=== PATIENT | female | born 1990 | race American Indian/Alaskan Native ===

== ENCOUNTER 2016-08-21 06:22 | Emergency (ER) | payer MEDICAID, OTHER ==
[2016-08-21 06:34] VITALS: BP 110/77; PULSE 102; RESP 16; TEMP 98.3; O2SAT 98
--- NOTE | 2016-08-21 07:26 | C.PDOC ---
History Of Present Illness 26-year-old female, presents to the emergency department with complaints of cough, and nasal congestion x3 days. She reports taking Day-Quil with limited relief. Patient denies any fevers, shortness of breath, headache, nausea/ vomiting, diarrhea, or any other associated symptoms. No other complaints at this time. Time Seen by Provider: 08/21/16 07:14 Chief Complaint (Nursing): Cough, Cold, Congestion History Per: Patient History/Exam Limitations: no limitations Onset/Duration Of Symptoms: Days Current Symptoms Are (Timing): Still Present Past Medical History Reviewed: Historical Data, Nursing Documentation, Vital Signs Vital Signs: Last Vital Signs Temp 98.3 F 08/21/16 06:31 Pulse 102 H 08/21/16 06:31 Resp 16 08/21/16 06:31 BP 110/77 08/21/16 06:31 Pulse Ox 98 08/21/16 07:58 - Medical History PMH: Asthma Surgical History: Appendectomy - [facility] Procedures INJECT/INFUSE NEC (08/02/13) NEBULIZER THERAPY (07/30/13) Family History: States: No Known Family Hx - Social History Hx Tobacco Use: Yes Hx Alcohol Use: No Hx Substance Use: No - Immunization History Hx Tetanus Toxoid Vaccination: No Hx Influenza Vaccination: No Hx Pneumococcal Vaccination: No Review Of Systems Except As Marked, All Systems Reviewed And Found Negative. Constitutional: Negative for: Fever ENT: Positive for: Nose Congestion Respiratory: Negative for: Cough, Shortness of Breath, Sputum, Wheezing Gastrointestinal: Negative for: Nausea, Vomiting, Diarrhea Musculoskeletal: Negative for: Neck Pain Neurological: Negative for: Weakness, Headache, Dizziness Physical Exam - Physical Exam Appears: Non-toxic, No Acute Distress Skin: Warm, Dry, No Rash Eye(s): bilateral: Normal Inspection, PERRL Ear(s): Bilateral: Normal Nose: Other (Mild congestion) Oral Mucosa: Moist Lips: Normal Appearing Neck: Normal ROM, Supple Cardiovascular: Rhythm Regular, No Murmur Respiratory: Normal Breath Sounds, No Accessory Muscle Use, No Rales, No Rhonchi , No Wheezing Extremity: Normal ROM Neurological/Psych: Oriented x3 ED Course And Treatment O2 Sat by Pulse Oximetry: 98 (on Room Air) Medical Decision Making Medical Decision Making: Impression 26y/o F, comes in with nasal congestion and cough, likely viral URI Dispo: Patient has no fever appears nontoxic and in no respiratory distress. Lungs clear bilaterally with good air entry. Patient will be discharged home with Rx for Sudafed and Phenergan; Patient instructed to f/u outpatient with PMD. Agrees with plan. All questions answered. Disposition Counseled Patient/Family Regarding: Diagnosis, Need For Followup, Rx Given - Disposition Disposition: HOME/ ROUTINE Disposition Time: 07:23 Condition: GOOD Additional Instructions: You have viral upper respiratory infection. Take Tylenol or Motrin alternating every 4-6 hours for Fever 100.4F or higher. Rest and drink plenty of fluids. May use cool mist humidifier or vaporizer in room. Try taking over the counter antihistamine (Claritin, Johana, Zyrtec), Decongestant or Cough medicine ( Mucinex) as needed every 6-8 hours. Follow up with your primary medical doctor or clinic in 1 week for further evaluation. Prescriptions: Promethazine DM [Phenergan DM Syrup] 5 ml PO Q8 PRN #3 oz PRN Reason: Cough Pseudoephedrine HCl [Sudafed] 30 mg PO Q8 #24 tablet Instructions: Upper Respiratory Infection (ED) Forms: Work Excuse - POA Present On Arrival: None - Clinical Impression Clinical Impression: Upper respiratory infection - Scribe Statement The provider has reviewed the documentation as recorded by the Scribe (Shemar Srivastava) All medical record entries made by the Scribe were at my direction and personally dictated by me. I have reviewed the chart and agree that the record accurately reflects my personal performance of the history, physical exam, medical decision making, and the department course for this patient. I have also personally directed, reviewed, and agree with the discharge instructions and disposition.
== END 2016-08-21 07:30 | disposition home or self-care (01) ==
LOC: C.ER 06:22
DX: J06.9 Acute upper respiratory infection, unspecified (principal)

== ENCOUNTER 2017-05-30 19:59 | Emergency (ER) | payer MEDICAID, OTHER ==
[2017-05-30 20:17] VITALS: RESP 20
[2017-05-30] MEDS ORDERED: Sodium Chloride 0.9% 1,000 ML IV ONE (21:04)
[2017-05-30 21:32] LABS: BASO # 0.1 K/uL (0.0-0.2); BASO % 2.1 % (0.0-2.0); EOS # 0.4 K/uL (0.0-0.7); EOS % 6.3 % (0.0-4.0); HEMOGLOBIN 12.9 g/dL (11.0-16.0); LYMPH # 1.7 K/uL (1.0-4.3); LYMPH % 26.9 % (20.0-40.0); MEAN CELL VOLUME 88.5 fL (81.0-99.0); MEAN CORPUSCULAR HEMOGLOBIN 28.8 pg (27.0-31.0); MEAN CORPUSCULAR HGB CONC 32.6 g/dL (33.0-37.0); MONO # 0.7 K/uL (0.0-0.8); MONO % 11.3 % (0.0-10.0); NEUT # 3.4 K/uL (1.8-7.0); NEUT % 53.4 % (50.0-75.0); RBC 4.47 Mil/uL (3.80-5.20); RED CELL DISTRIBUTION WIDTH 14.3 % (11.5-14.5); WHITE BLOOD COUNT 6.4 K/uL (4.8-10.8)
[2017-05-30 21:45] LABS: ALB/GLOB RATIO 1.1 (1.0-2.1); ALBUMIN 4.1 g/dL (3.5-5.0); ALT/SGPT 14 U/L (9-52); AST/SGOT 19 U/L (14-36); BLOOD UREA NITROGEN 11 mg/dL (7-17); CALCIUM 8.6 mg/dl (8.6-10.4); GFR AFRICAN-AMERICAN > 60; GFR NON-AFRICAN AMERICAN > 60; LIPASE 50 U/L (23-300)
--- NOTE | 2017-05-30 22:06 | C.PDOC ---
Time Seen by Provider: 05/30/17 20:30 Chief Complaint (Nursing): Flu-like Symptoms History Per: Patient Onset/Duration Of Symptoms: Days (4) Current Symptoms Are (Timing): Still Present Associated Symptoms: Sore Throat, Cough, Nasal Congestion, Nausea, Vomiting, Diarrhea Severity: Moderate Additional History Per: Prior Records Past Medical History Reviewed: Historical Data, Nursing Documentation, Vital Signs Vital Signs: Last Vital Signs Temp 97.8 F 05/30/17 20:13 Pulse 87 05/30/17 20:13 Resp 20 05/30/17 20:13 BP 133/90 05/30/17 20:13 Pulse Ox 97 05/30/17 20:13 - Medical History PMH: Asthma Surgical History: Appendectomy - [facility] Procedures INJECT/INFUSE NEC (08/02/13) NEBULIZER THERAPY (07/30/13) Family History: States: Unknown Family Hx - Social History Hx Tobacco Use: Yes Hx Alcohol Use: No Hx Substance Use: No - Immunization History Hx Tetanus Toxoid Vaccination: No Hx Influenza Vaccination: No Hx Pneumococcal Vaccination: No Review Of Systems Except As Marked, All Systems Reviewed And Found Negative. Constitutional: Positive for: Fever ENT: Positive for: Nose Congestion, Throat Pain. Negative for: Ear Pain Cardiovascular: Negative for: Chest Pain Respiratory: Positive for: Cough. Negative for: Shortness of Breath, Hemoptysis Gastrointestinal: Positive for: Nausea, Vomiting, Abdominal Pain, Diarrhea. Negative for: Melena, Hematochezia, Hematemesis Genitourinary: Negative for: Dysuria Musculoskeletal: Negative for: Neck Pain, Back Pain Skin: Negative for: Rash Neurological: Negative for: Weakness, Numbness, Seizures, Altered Mental Status Physical Exam - Physical Exam Appears: Non-toxic, No Acute Distress Skin: Normal Color, Warm, Dry, No Rash Head: Atraumatic, Normacephalic Eye(s): bilateral: Normal Inspection, PERRL, EOMI Oral Mucosa: Moist, No Drooling, No Trismus Neck: Normal ROM, Supple Lymphatic: No Adenopathy Cardiovascular: Rhythm Regular Respiratory: Normal Breath Sounds, No Accessory Muscle Use Gastrointestinal/Abdominal: Soft, Tenderness (mild nonspecific), No Distention, No Guarding, No Rebound Back: No CVA Tenderness Extremity: Normal ROM Neurological/Psych: Oriented x3, Normal Speech, Normal Motor, Normal Sensation ED Course And Treatment - Laboratory Results Result Diagrams: 05/30/17 21:29 05/30/17 21:29 Lab Interpretation: No Acute Changes O2 Sat by Pulse Oximetry: 97 Pulse Ox Interpretation: Normal Progress - Interventions Interventions:: Observation, Intravenous fluid - Medications Administered Oral: Antiemetic Intravenous: H-2 johnna, NSAID - Data Reviewed Data Reviewed: Lab, Old records - Patient Status Patient status: Mostly improved - Continuity of Care Discussed patient case with:: Patient, ED Nurse - Patient Plan Patient Plan: Discharge, F/U with PCP Disposition Counseled Patient/Family Regarding: Studies Performed, Diagnosis, Need For Followup, Rx Given, Smoking Cessation - Disposition Disposition: HOME/ ROUTINE Disposition Time: 22:08 Condition: IMPROVED Additional Instructions: Drink plenty of fluids. Follow up with your doctor. Return to the ER if you develop shortness of breath, not tolerating fluids, worsening of symptoms or if you have any other concerns. Prescriptions: Naproxen [Naprosyn] 1 tab PO BID PRN #20 tab PRN Reason: Pain Promethazine DM [Phenergan DM Syrup] 5 ml PO Q4 PRN #1 bottle PRN Reason: Cough Instructions: Viral Syndrome (DC) Forms: [facility] (Kazakh) - Clinical Impression Clinical Impression: Influenza-like illness
[2017-05-30 22:26] LABS: HCG,QUALITATIVE URINE NEGATIVE (NEGATIVE)
[2017-05-30 22:28] LABS: SQUAMOUS EPITHIAL 5 /hpf (0-5); URINE BACTERIA RARE (<OCC); URINE BILIRUBIN NEGATIVE (NEGATIVE); URINE BLOOD 3+ (NEGATIVE); URINE COLOR Yellow (YELLOW); URINE GLUCOSE (UA) NORMAL (Normal); URINE LEUKOCYTE ESTERASE TRACE Leu/uL (Negative); URINE PROTEIN NEGATIVE (NEGATIVE); URINE UROBILINOGEN NORMAL mg/dL (0.2-1.0)
[2017-05-30 22:31] LABS: URINE CLARITY Hazy (Clear)
[2017-05-30 22:38] VITALS: BP 119/81; PULSE 85; TEMP 98.3; O2SAT 99
== END 2017-05-30 22:53 | disposition home or self-care (01) ==
LOC: C.ER 19:59
DX: J11.1 Influenza due to unidentified influenza virus with other respiratory manifestations (principal); Z72.0 Tobacco use
CPT/HCPCS: 80053; 81001; 83690; 84703; 85025; 87804; 96361; 96374; 96375; 99285; J1885; J7040

== ENCOUNTER 2017-10-13 17:51 | Emergency (ER) | payer OTHER ==
[2017-10-13 17:55] VITALS: BMI 28.5
[2017-10-13 18:35] LABS: URINE BILIRUBIN NEGATIVE (NEGATIVE); URINE CLARITY HAZY (Clear); URINE COLOR YELLOW (YELLOW); URINE GLUCOSE (UA) NORMAL (Normal)
[2017-10-13 18:36] LABS: URINE BLOOD 3+ (NEGATIVE); URINE LEUKOCYTE ESTERASE TRACE Leu/uL (Negative); URINE PROTEIN NEGATIVE (NEGATIVE)
[2017-10-13 18:37] LABS: HCG,QUALITATIVE URINE NEGATIVE (NEGATIVE); SQUAMOUS EPITHIAL 10 /hpf (0-5)
--- NOTE | 2017-10-13 18:45 | C.PDOC ---
History Of Present Illness 27 y/o F c no PMHx p/w L sided pelvic pain x 1 week. Pain is sharp, intermittent , severe, associated with vaginal spotting. States had sexual intercourse a little before 1 week prior to symptoms with boyfriend who she has been sexually active with for 1 month, and notes that condom broke. He went to her primary care physician for this pain and states she had a negative gonorrhea and chlamydia test. Denies fever, chills, chest pain, dyspnea, vomiting, diarrhea, dysuria. Time Seen by Provider: 10/13/17 18:31 Chief Complaint (Nursing): Female Genitourinary Past Medical History Vital Signs: Last Vital Signs Temp 98.3 F 10/13/17 17:55 Pulse 103 H 10/13/17 17:55 Resp 20 10/13/17 17:55 BP 140/93 H 10/13/17 17:55 Pulse Ox 98 10/13/17 18:50 - Medical History PMH: Asthma Surgical History: Appendectomy - [facility] Procedures INJECT/INFUSE NEC (08/02/13) NEBULIZER THERAPY (07/30/13) Family History: States: Unknown Family Hx - Social History Hx Tobacco Use: Yes Hx Alcohol Use: No Hx Substance Use: No - Immunization History Hx Tetanus Toxoid Vaccination: No Hx Influenza Vaccination: No Hx Pneumococcal Vaccination: No Review Of Systems Except As Marked, All Systems Reviewed And Found Negative. Constitutional: Negative for: Fever Cardiovascular: Negative for: Chest Pain Physical Exam - Physical Exam Additional Physical Exam Comments: Constitutional: No acute distress. Head: Normocephalic. Atraumatic. Eyes: PERRL. ENT: Moist mucous membranes. Neck: Supple. Cardiovascular: Regular rate. Radial pulse 2+ bilaterally. Chest: No tenderness. Respiratory: Clear to auscultation bilaterally. Abdomen: Suprapubic pain just to L of midline Back: No CVA tenderness. Musculoskeletal: No tenderness or swelling of extremities. Skin: No rash. Neurologic: Alert, no focal deficit. ED Course And Treatment - Laboratory Results Result Diagrams: 10/13/17 16:55 10/13/17 16:55 O2 Sat by Pulse Oximetry: 98 (RA) Pulse Ox Interpretation: Normal Medical Decision Making Medical Decision Making: FINDINGS: Uterus/cervix: 1.9 x 1.5 x 1.1 cm posterior uterine mass. Endometrium: 0.9 cm in thickness. Right ovary: No mass. Small follicles. Normal flow. Left ovary: 1.6 x 1.4 x 1.8 cm dominant follicle. Questionable 1.2 x 1.0 x 1.2 cm corpus luteum. Small follicles. Normal flow. Free fluid: Small free fluid within pelvis. IMPRESSION: 1. No definite sonographic evidence of ovarian torsion. 2. Probable fibroid. Patient states symptoms much improved. Will discharge, f/u with private CLINICAL TECHNICIAN, return to ED for worsening pain, fever, vomiting, or any other problem. Disposition - Disposition Disposition: HOME/ ROUTINE Disposition Time: 21:03 Condition: STABLE Prescriptions: Famotidine [Pepcid] 1 tab PO BID #14 tab Ibuprofen [Motrin] 600 mg PO Q6 #25 tab Instructions: Ovarian Cysts Forms: [facility] (Macedonian) - Clinical Impression Clinical Impression: Ovarian cyst - Scribe Statement The provider has reviewed the documentation as recorded by the Amyibneo Hoover All medical record entries made by the Amyibneo were at my direction and personally dictated by me. I have reviewed the chart and agree that the record accurately reflects my personal performance of the history, physical exam, medical decision making, and the department course for this patient. I have also personally directed, reviewed, and agree with the discharge instructions and disposition.
[2017-10-13] MEDS ORDERED: Sodium Chloride 0.9% 1,000 ML IV STA (18:48)
[2017-10-13] MEDS ORDERED: Sodium Chloride 0.9% 1,000 ML ONE (19:02)
[2017-10-13 19:03] LABS: BASO # 0.1 K/uL (0.0-0.2); EOS # 0.2 K/uL (0.0-0.7); HEMOGLOBIN 12.4 g/dL (11.0-16.0); LYMPH # 1.8 K/uL (1.0-4.3); MEAN CELL VOLUME 87.8 fL (81.0-99.0); MEAN CORPUSCULAR HEMOGLOBIN 29.1 pg (27.0-31.0); MEAN CORPUSCULAR HGB CONC 33.1 g/dL (33.0-37.0); MEAN PLATELET VOLUME 9.8 fL (7.2-11.7); MONO % 8.7 % (0.0-10.0); NEUT % 72.3 % (50.0-75.0); NRBC % 0.1 % (0.0-2.0); RBC 4.26 Mil/uL (3.80-5.20); RED CELL DISTRIBUTION WIDTH 14.2 % (11.5-14.5); WHITE BLOOD COUNT 11.1 K/uL (4.8-10.8)
[2017-10-13 19:16] LABS: ALB/GLOB RATIO 1.5 (1.0-2.1); ALBUMIN 4.1 g/dL (3.5-5.0); ALT/SGPT 21 U/L (9-52); AST/SGOT 19 U/L (14-36); BLOOD UREA NITROGEN 19 mg/dL (7-17); CALCIUM 9.1 mg/dl (8.6-10.4); GFR AFRICAN-AMERICAN > 60; GFR NON-AFRICAN AMERICAN > 60
[2017-10-13 21:18] VITALS: BP 130/83; PULSE 73; RESP 16; TEMP 98.9; O2SAT 97
--- NOTE | 2017-10-14 10:18 | US ---
Pelvic ultrasound History: Pelvic pain. Cyst versus torsion. Comparison: None available. Technique: Real-time sonography was performed through the pelvis utilizing transvaginal technique. Findings: Uterus: 8.7 x 4.1 x 6.0 centimeters. Heterogeneous echotexture. Anteverted. Heterogeneous lesion at the level of the uterine fundus which appears pedunculated measuring 1.5 x 1.1 x 1.9 centimeters. Endometrium measures 9 millimeters, within normal limits. Free fluid within the pelvic cul-de-sac. Right ovary: 2.7 x 2.3 x 1.9 centimeters. Normal flow. Left ovary: 3.2 x 3.2 x 3.3 centimeters. Normal flow. 1.6 x 1.4 x 1.8 centimeter dominant follicle/cyst. Adjacent echogenic foci which may represent a corpus luteum versus complex cyst measuring 1.2 x 1.0 x 1.2 cm. 4-6 week interval followup may be helpful if clinically indicated. Impression: 1. Echogenic foci at the level of the left ovary measuring up to 1.2 centimeters which may represent a corpus luteum versus complex cyst versus additional etiology. 4-6 week interval followup may be helpful if clinically indicated. 2. 1.8 centimeter left ovarian cyst/dominant follicle. 3. Free fluid in the pelvic cul-de-sac. 4. Fibroid uterus. These findings were preliminarily reported at 8:43 p.m. on 10/13/[address] Wiliam Healy from [facility].
== END 2017-10-13 21:26 | disposition home or self-care (01) ==
LOC: C.ER 17:51
DX: N83.202 Unspecified ovarian cyst, left side (principal); Z72.0 Tobacco use
CPT/HCPCS: 76830; 80053; 81001; 84702; 84703; 85025; 96374; 99285; J1885; J7030

== ENCOUNTER 2017-10-16 17:28 | Emergency (ER) | payer OTHER ==
[2017-10-16 17:28] VITALS: BMI 28.5
[2017-10-16 17:37] VITALS: RESP 18
[2017-10-16 19:17] LABS: BASO # 0.1 K/uL (0.0-0.2); BASO % 0.7 % (0.0-2.0); EOS # 0.2 K/uL (0.0-0.7); EOS % 1.5 % (0.0-4.0); HEMOGLOBIN 13.7 g/dL (11.0-16.0); LYMPH % 16.9 % (20.0-40.0); MEAN CORPUSCULAR HEMOGLOBIN 29.8 pg (27.0-31.0); MEAN CORPUSCULAR HGB CONC 33.9 g/dL (33.0-37.0); MEAN PLATELET VOLUME 10.1 fL (7.2-11.7); MONO # 0.8 K/uL (0.0-0.8); MONO % 6.8 % (0.0-10.0); NEUT # 8.8 K/uL (1.8-7.0); NEUT % 74.1 % (50.0-75.0); NRBC % 0.1 % (0.0-2.0); RBC 4.59 Mil/uL (3.80-5.20); RED CELL DISTRIBUTION WIDTH 14.5 % (11.5-14.5); WHITE BLOOD COUNT 11.9 K/uL (4.8-10.8)
--- NOTE | 2017-10-16 19:51 | C.PDOC ---
History Of Present Illness 27yo female, presents to the emergency department with complaints of left lower quadrant abdominal pain x1 week. Pain is sharp, intermittent, severe, associated with vaginal spotting. States this is not her period, and she s going through four pads a day. Patient was seen in ED three days ago but continues to have pain. States she was discharged with Naprosyn which is not helping. Denies fever, chills, chest pain, dyspnea, vomiting, diarrhea, dysuria. Patient took a text two days ago, which was negative. LMP . Time Seen by Provider: 10/16/17 18:12 Chief Complaint (Nursing): Abdominal Pain History Per: Patient History/Exam Limitations: no limitations Onset/Duration Of Symptoms: Days Current Symptoms Are (Timing): Still Present Severity: Moderate Location Of Pain/Discomfort: Suprapubic Past Medical History Reviewed: Historical Data, Nursing Documentation, Vital Signs Vital Signs: Last Vital Signs Temp 98.8 F 10/16/17 17:33 Pulse 91 H 10/16/17 17:33 Resp 18 10/16/17 17:33 BP 132/92 H 10/16/17 17:33 Pulse Ox 100 10/16/17 19:55 - Medical History PMH: Asthma Surgical History: [facility]endectomy - [facility] Procedures INJECT/INFUSE NEC (08/02/13) NEBULIZER THERAPY (07/30/13) Family History: States: No Known Family Hx - Social History Hx Tobacco Use: Yes Hx Alcohol Use: No Hx Substance Use: No - Immunization History Hx Tetanus Toxoid Vaccination: No Hx Influenza Vaccination: No Hx Pneumococcal Vaccination: No Review Of Systems Cardiovascular: Negative for: Chest Pain Gastrointestinal: Positive for: Abdominal Pain. Negative for: Nausea, Vomiting Genitourinary: Positive for: Vaginal Bleeding Physical Exam - Physical Exam Appears: Non-toxic, No Acute Distress Skin: Normal Color, Warm, Dry, No Rash Head: Atraumatic, Normacephalic Eye(s): bilateral: Normal Inspection Nose: Normal Oral Mucosa: Moist Lips: Normal Appearing Neck: Normal ROM Chest: Symmetrical Cardiovascular: Rhythm Regular, No Murmur Respiratory: Normal Breath Sounds, No Accessory Muscle Use Gastrointestinal/Abdominal: Soft, Tenderness (mild, Left pelvic), No Mass, No Distention, No Guarding, No Rebound Back: Normal Inspection Extremity: Normal ROM, No Deformity Neurological/Psych: Oriented x3, Normal Speech ED Course And Treatment - Laboratory Results Result Diagrams: 10/16/17 19:14 Lab Interpretation: Normal Interpretation Of Abnormal: BHCG negative O2 Sat by Pulse Oximetry: 100 Pulse Ox Interpretation: Normal (RA) Reevaluation Time: 20:42 Reassessment Condition: Improved (Patient states that she still has LLQ pain but does not appear to be in significant distress) Disposition Counseled Patient/Family Regarding: Studies Performed, Diagnosis, Need For Followup, Rx Given - Disposition Disposition: HOME/ ROUTINE Disposition Time: 20:43 Condition: IMPROVED Additional Instructions: Follow up with your litigation paralegal for 11:00 AM appointment tomorrow as scheduled. Prescriptions: Naproxen [Naprosyn] 1 tab PO BID PRN #25 tab PRN Reason: Pain Instructions: Ovarian Cysts, Acute Pelvic Pain (DC) Forms: [facility] (Malaysian) - Clinical Impression Clinical Impression: Ovarian cyst - Scribe Statement The provider has reviewed the documentation as recorded by the Scribe (Shemar Srivastava) All medical record entries made by the Scribe were at my direction and personally dictated by me. I have reviewed the chart and agree that the record accurately reflects my personal performance of the history, physical exam, medical decision making, and the department course for this patient. I have also personally directed, reviewed, and agree with the discharge instructions and disposition.
[2017-10-16 20:56] VITALS: BP 128/85; PULSE 75; TEMP 98.6; O2SAT 99
== END 2017-10-16 20:57 | disposition home or self-care (01) ==
LOC: C.ER 17:28
DX: N83.202 Unspecified ovarian cyst, left side (principal)
CPT/HCPCS: 84702; 85025; 96374; 99285; J1885

== ENCOUNTER 2018-04-09 12:41 | Observation (INO) | payer OTHER ==
[2018-04-09 12:41] VITALS: BMI 28.5
--- NOTE | 2018-04-09 14:04 | C.PDOC ---
History Of Present Illness 28 y/o tobacco-smoking female with no significant PMH presents to the ED c/o isolated left hand numbness x 6 hours. Pt states she awoke this morning at 8am with numbness and weakness to the entirety of the left hand, both dorsal and volar aspects including the digits. Pt has never experienced these symptoms before. No FHx of MS. Also c/o intermittent left knee pain with associated left calf pain over the last few months that worsened yesterday. States she was prescribed a pain medication by her PMD but ran out, unsure of the name of the medication. Denies sleeping on her left arm overnight. Denies trauma/injury, fever, chills, paresthesias, hand pain, facial droop, leg or upper arm numbness/weakness, difficulty speaking, difficulty ambulating, chest pain, SOB, abdominal pain, N/V/D, dizziness, headache, vision changes, or any other associated symptoms. Time Seen by Provider: 04/09/18 13:00 Chief Complaint (Nursing): Finger,Hand,&Wrist History Per: Patient History/Exam Limitations: no limitations Onset/Duration Of Symptoms: Days Current Symptoms Are (Timing): Still Present Past Medical History Reviewed: Historical Data, Nursing Documentation, Vital Signs Vital Signs: Last Vital Signs Temp 97.6 F 04/09/18 12:46 Pulse 95 H 04/09/18 12:46 Resp 18 04/09/18 12:46 BP 138/80 04/09/18 12:46 Pulse Ox 97 04/09/18 12:46 - Medical History PMH: Asthma Surgical History: Appendectomy - [facility] Procedures INJECT/INFUSE NEC (08/02/13) NEBULIZER THERAPY (07/30/13) Family History: States: Unknown Family Hx - Social History Hx Tobacco Use: Yes Hx Alcohol Use: No Hx Substance Use: No - Immunization History Hx Tetanus Toxoid Vaccination: No Hx Influenza Vaccination: No Hx Pneumococcal Vaccination: No Review Of Systems Constitutional: Negative for: Fever Eyes: Negative for: Vision Change Cardiovascular: Negative for: Chest Pain, Palpitations, Light Headedness Respiratory: Negative for: Cough, Shortness of Breath Gastrointestinal: Negative for: Nausea, Vomiting, Abdominal Pain Musculoskeletal: Positive for: Leg Pain (chronic left leg pain). Negative for: Hand Pain Skin: Negative for: Rash Neurological: Positive for: Weakness (left hand), Numbness (Left hand). Negative for: Change in Speech, Headache, Dizziness Physical Exam - Physical Exam Appears: Well, Non-toxic, No Acute Distress Skin: Normal Color, Warm, Dry Head: Atraumatic, Normacephalic, No Tenderness Eye(s): bilateral: Normal Inspection, PERRL, EOMI Nose: Normal Throat: Normal Neck: Normal, Supple Cardiovascular: Rhythm Regular Respiratory: Normal Breath Sounds Gastrointestinal/Abdominal: Normal Exam, Soft, No Tenderness Back: Normal Inspection Extremity: Normal ROM, Tenderness (left calf and medial left knee), Capillary Refill (<2s), No Deformity, No Swelling Extremity: Left: Other (left hand with decreased sensation to light touch and pinprick, + sensation to painful nail stimuli; left industrial accountant strength decreased, otherwise full strength bilaterally), Bilateral: Atraumatic, Normal Color And Te mperature, Normal ROM Pulses: Left Radial: Normal, Right Radial: Normal Neurological/Psych: Oriented x3, Normal Speech, Normal Cognition, Normal Cranial Nerves, No Cerebellar Signs, Normal Motor, Normal Sensation, Other (industrial accountant strength left hand decreased) Pain Response: Withdraws With Pain Gait: Steady Other Neurological Findings: No Facial Palsy, No Forehead Sparing, No Tongue Deviation ED Course And Treatment - Laboratory Results Result Diagrams: 04/09/18 15:09 04/09/18 15:09 O2 Sat by Pulse Oximetry: 97 (RA) Pulse Ox Interpretation: Normal - Other Rad Left knee x-ray X-Ray: Read By Radiologist Interpretation: Accession No. : [id number]. Patient Name / ID : MAYELA AHN / [id number]. Exam Date : 04/09/2018 13:28:46 ( Approved ). Study Comment : Sex / Age : F / 28Y. Creator : Ruiz Alatorre MD. Dictator : Ruiz Alatorre MD. Clay Plant Treater : Nurse First Aid : Ruiz Alatorre MD. Approver2 : Report Date : 04/09/2018 14:27:37. My Comment : * . Date of service: 04/09/2018. PROCEDURE: Left Knee Radiographs. HISTORY: Pain. COMPARISON: None. FINDINGS: BONES: Normal. No fracture. JOINTS: Normal. No osteoarthritis. JOINT EFFUSION: None. OTHER FINDINGS: None. IMPRESSION: No evidence of acute displaced fracture nor dislocation. - CT Scan/US Doppler US Other Rad Studies (CT/US): Radiology Report Reviewed CT/US Interpretation: Negative for DVT Medical Decision Making Medical Decision Making: Impression: Chronic left leg pain, New-onset left hand numbness Plan: - Doppler US, LLE - Left Knee x-ray Doppler US preliminary reading is negative. Left knee x-ray is unremarkable. 13:56 Case discussed with ED attending Dr. Cannon, who evaluated and examined patient at bedside, and agrees with my assessment. Patient with loss of sensation to left hand both dorsal and volar aspects, and industrial accountant strength is weaker on left hand compared to right. Recommends neurology consult. 14:[address] Kelly, neuro on-call, who requests MRI of the brain without contrast for further evaluation. Discussed with Dr. Cannon, who recommends patient be admitted for work-up of peripheral neuropathy, and rule out MS. 14:[address] Rosales, who accepts patient for observation admission for MRI and neurology consult with diagnosis of peripheral neuropathy. enrollment services vice president notified. Labwork unremarkable. Disposition Discussed With DrMaya: Paul Rosales Jr. Doctor Will See Patient In The: Hospital Counseled Patient/Family Regarding: Studies Performed, Diagnosis - Disposition Disposition: HOSPITALIZED Disposition Time: 15:00 Condition: STABLE - POA Present On Arrival: None - Clinical Impression Clinical Impression: Chronic leg pain, Neuropathy - PA / LOT TECHNICIAN / Resident Statement MD/DO has reviewed & agrees with the documentation as recorded. - Scribe Statement The provider has reviewed the documentation as recorded by the Amyibneo Pollack All medical record entries made by the Amyibe were at my direction and personally dictated by me. I have reviewed the chart and agree that the record accurately reflects my personal performance of the history, physical exam, medical decision making, and the department course for this patient. I have also personally directed, reviewed, and agree with the discharge instructions and disposition.
--- NOTE | 2018-04-09 14:31 | RAD ---
Date of service: 04/09/2018 PROCEDURE: Left Knee Radiographs. HISTORY: Pain. COMPARISON: None. FINDINGS: BONES: Normal. No fracture. JOINTS: Normal. No osteoarthritis. JOINT EFFUSION: None. OTHER FINDINGS: None. IMPRESSION: No evidence of acute displaced fracture nor dislocation. The
[2018-04-09 15:14] LABS: BASO # 0.1 K/uL (0.0-0.2); BASO % 1.1 % (0.0-2.0); EOS # 0.1 K/uL (0.0-0.7); EOS % 1.3 % (0.0-4.0); HEMOGLOBIN 13.5 g/dL (11.0-16.0); LYMPH # 1.5 K/uL (1.0-4.3); LYMPH % 16.6 % (20.0-40.0); MEAN CELL VOLUME 89.1 fL (81.0-99.0); MEAN CORPUSCULAR HEMOGLOBIN 29.4 pg (27.0-31.0); MEAN CORPUSCULAR HGB CONC 32.9 g/dL (33.0-37.0); MONO # 0.5 K/uL (0.0-0.8); MONO % 5.5 % (0.0-10.0); NEUT # 6.7 K/uL (1.8-7.0); NEUT % 75.5 % (50.0-75.0); RBC 4.61 Mil/uL (3.80-5.20); RED CELL DISTRIBUTION WIDTH 13.8 % (11.5-14.5); WHITE BLOOD COUNT 8.8 K/uL (4.8-10.8)
[2018-04-09 15:25] VITALS: RESP 16
[2018-04-09 15:34] LABS: BLOOD UREA NITROGEN 13 mg/dL (7-17); CALCIUM 9.5 mg/dl (8.6-10.4); GFR NON-AFRICAN AMERICAN > 60
[2018-04-09 15:41] LABS: ALB/GLOB RATIO 1.4 (1.0-2.1); ALBUMIN 5.1 g/dL (3.5-5.0); ALT/SGPT 16 U/L (9-52); AST/SGOT 34 U/L (14-36)
--- NOTE | 2018-04-09 16:08 | CP.PCM.HP ---
History of Present Illness - History of Present Illness History of Present Illness: CC: Left hand numbness/weakness Patient is a 28 year old female with no pmhx who presents today with complaints of left hand weakness and numbness. Pt reports she awoke today at 8am and could not feel any sensation to her left hand below the wrist. Pt attempted to move her hand but reports she has no motor strength. Pt denies these symptoms before. Pt waiting several hours with minimal improvement and presented to ED for evaluation. Pt denies headache, dizziness, decreased sensation or numbness to other parts of body, chest pain, SOB, nausea. pmhx: denies pshx: appendectomy @ 14yrs old Med: denies Allergies: NKDA FamHx: no hx of cancers, heart dz, stroke SocHx: 20 pack year smoking hx, denies alcohol/drugs, works as home health aid Present on Admission - Present on Admission Any Indicators Present on Admission: No Review of Systems - Cardiovascular Cardiovascular: absent: Chest Pain, Pedal Edema - Respiratory Respiratory: absent: Dyspnea - Gastrointestinal Gastrointestinal: absent: Nausea - Genitourinary Genitourinary: absent: Dysuria - Musculoskeletal Musculoskeletal: Limited Range of Motion, Numbness, Tingling Additional comments: left hand - Neurological Neurological: absent: Dizziness - Hematologic/Lymphatic Hematologic: absent: Easy Bleeding Past Patient History - Past Social History Smoking Status: Light Smoker < 10 Cigarettes Daily - PULMONARY Hx Asthma: Yes - GENITOURINARY/GYNECOLOGICAL Hx Genitourinary Disorders: Yes Other/Comment: Ovarian cyst - PSYCHIATRIC Hx Substance Use: No - SURGICAL HISTORY Hx Appendectomy: Yes - ANESTHESIA Hx Anesthesia: Yes Hx Anesthesia Reactions: No Meds Allergies/Adverse Reactions: Allergies Allergy/AdvReac Type Severity Reaction Status Date / Time No Known Allergies Allergy Verified 10/13/17 17:54 Physical Exam - Constitutional Appears: Non-toxic, No Acute Distress - Head Exam Head Exam: ATRAUMATIC, NORMAL INSPECTION, NORMOCEPHALIC - Eye Exam Eye Exam: EOMI, Normal appearance - ENT Exam ENT Exam: Mucous Membranes Moist, Normal Exam - Neck Exam Neck exam: Positive for: Normal Inspection - Respiratory Exam Respiratory Exam: Clear to Auscultation Bilateral, NORMAL BREATHING PATTERN. absent: Rhonchi - Cardiovascular Exam Cardiovascular Exam: REGULAR RHYTHM. absent: Tachycardia - Extremities Exam Extremities exam: Positive for: pedal pulses present. Negative for: calf tenderness, pedal edema Additional comments: LUE: minimally edematous>right decreased sensation on left doral/palmar aspects below wrist decreased muscle strength 3/5 compared to right 5/5 cool to touch - Neurological Exam Neurological exam: Alert, Normal Gait, Oriented x3 - Psychiatric Exam Psychiatric exam: Normal Affect, Normal Mood - Skin Skin Exam: Dry, Intact, Normal Color, Warm Results - Vital Signs Recent Vital Signs: Last Vital Signs Temp 98.4 F 04/09/18 15:24 Pulse 71 04/09/18 15:24 Resp 16 04/09/18 15:24 BP 113/83 04/09/18 15:24 Pulse Ox 99 04/09/18 15:24 - Labs Result Diagrams: 04/09/18 15:09 04/09/18 15:09 Labs: Laboratory Results - last 24 hr 04/09/18 04/09/18 04/09/18 12:53 15:09 15:09 WBC 8.8 RBC 4.61 Hgb 13.5 Hct 41.1 MCV 89.1 MCH 29.4 MCHC 32.9 L RDW 13.8 Plt Count 315 MPV 10.0 Neut % (Auto) 75.5 H Lymph % (Auto) 16.6 L [place] % (Auto) 5.5 Eos % (Auto) 1.3 Baso % (Auto) 1.1 Neut # (Auto) 6.7 Lymph # (Auto) 1.5 [place] # (Auto) 0.5 Eos # (Auto) 0.1 Baso # (Auto) 0.1 Sodium 139 Potassium 4.6 Chloride 103 Carbon Dioxide 26 Anion Gap 15 BUN 13 Creatinine 0.7 Est GFR ( Amer) > 60 Est GFR (Non-Af Amer) > 60 POC Glucose (mg/dL) 89 Random Glucose 85 Calcium 9.5 Total Bilirubin 0.8 AST 34 ALT 16 Alkaline Phosphatase 67 Total Protein 8.7 H Albumin 5.1 H D Globulin 3.6 Albumin/Globulin Ratio 1.4 Assessment & Plan - Assessment and Plan (Free Text) Assessment: 28 year old female admitted for evaluation of left hand numbness/weakness Plan: R/O CVA -LE doppler negative for DVT -MRI brain negative for acute pathology -LUE arterial/venous duplex ordered -ASA 325mg -Ibuprofen 400mg q6 pain Discussed w/ Dr. Bobby Leslie, PGY-1 Pt decided to sign out AMA after being told the risks of leaving. Pt understands but reports improvements in symptoms and chooses to leave regardless
--- NOTE | 2018-04-09 16:43 | MRI ---
Date of service: 04/09/2018 PROCEDURE: MRI BRAIN WITHOUT CONTRAST HISTORY: left hand numbness COMPARISON: None available. TECHNIQUE: Multiplanar, multisequence MR images of the brain were obtained without intravenous contrast enhancement. FINDINGS: HEMORRHAGE: None DWI: No evidence of an acute or early subacute infarction. BRAIN PARENCHYMA: Intrinsic signal throughout the russell and white matter structures above below the tentorium appears within normal limits including the brainstem. There is no mass effect, parenchymal edema or loss of the corticomedullary differentiation. Midline brain anatomy appears within normal limits including the corpus callosum, brainstem and craniocervical junction. There is no suspicious extra-axial fluid collection identified. The pituitary gland appears convex cephalad which is a frequent finding in young female patients. VENTRICLES: Unremarkable. No hydrocephalus. CRANIUM: Unremarkable. ORBITS: Grossly unremarkable. PARANASAL SINUSES/MASTOIDS: Clear VASCULAR SYSTEM: Skull base flow voids intact. OTHER FINDINGS: None. IMPRESSION: Unremarkable non contrast enhanced MRI of the brain.
--- NOTE | 2018-04-09 16:50 | CP.PCM.CON ---
<Jitendra Olson - Last Filed: 04/09/18 17:06> History of Present Illness - History of Present Illness History of Present Illness: PGY-1 Neurology Consult Note for Dr. Kelly Patient is a 28 year old female with no significant PMHx who comes in complaining of left hand and arm numbness. Patient states the symptoms began approximately 6 hours prior to arriving at ED. She denies having any pain, denies any inciting events/injuries. Her only complaint is complete lack of sensation in distal left upper extremity. Patient denies any neck or back pain. She denies any focal weakness though please note patient was found to have some left arm weakness on exam. Denies any recent illness or international travel. No known family history of stroke or cardiovascular disease. PMHx: No known significant PMHx Allergies: NKA Medications: No home meds Surgeries: Appendectomy age 13/15 Family hx: No known significant family hx, no known family hx of stroke or CV disease Social history: Social alcohol use, smokes cigarettes most but not all days, denies drug use. Works as a home health aide. PMD: Dr. Bazan Review of Systems - Constitutional Constitutional: absent: Chills, Fever - EENT Eyes: absent: Blurred Vision, Diplopia Nose/Mouth/Throat: absent: Nasal Congestion, Nasal Discharge - Cardiovascular Cardiovascular: absent: Chest Pain, Dyspnea, Edema (no UE swelling), Pedal Edema - Respiratory Respiratory: absent: Cough, Dyspnea - Gastrointestinal Gastrointestinal: absent: Abdominal Pain, Nausea, Vomiting - Musculoskeletal Musculoskeletal: absent: Back Pain, Neck Pain, Radiating Pain into Limb, St iffness, Tingling - Neurological Neurological: Numbness (LUE numbness as described), Sensory Deficit. absent: Abnormal Speech, Confusion, Dizziness, Headaches, Memory Loss, Radicular Pain, Weakness (Denies LE weakness) - Hematologic/Lymphatic Hematologic: absent: Easy Bleeding, Easy Bruising Past Patient History - Past Social History Smoking Status: Light Smoker < 10 Cigarettes Daily - PULMONARY Hx Asthma: Yes - GENITOURINARY/GYNECOLOGICAL Hx Genitourinary Disorders: Yes Other/Comment: Ovarian cyst - PSYCHIATRIC Hx Substance Use: No - SURGICAL HISTORY Hx Appendectomy: Yes - ANESTHESIA Hx Anesthesia: Yes Hx Anesthesia Reactions: No Meds Allergies/Adverse Reactions: Allergies Allergy/AdvReac Type Severity Reaction Status Date / Time No Known Allergies Allergy Verified 10/13/17 17:54 Physical Exam - Constitutional Appears: Non-toxic, No Acute Distress - Head Exam Head Exam: ATRAUMATIC, NORMOCEPHALIC - Eye Exam Eye Exam: EOMI, Normal appearance - ENT Exam ENT Exam: Mucous Membranes Moist - Respiratory Exam Respiratory Exam: Clear to Auscultation Bilateral, NORMAL BREATHING PATTERN. absent: Rhonchi, Wheezes - Cardiovascular Exam Cardiovascular Exam: REGULAR RHYTHM, +S1, +S2 - GI/Abdominal Exam GI & Abdominal Exam: Normal Bowel Sounds, Soft. absent: Tenderness - Extremities Exam Extremities exam: Positive for: normal inspection. Negative for: pedal edema, tenderness - Back Exam Back exam: absent: paraspinal tenderness, vertebral tenderness - Neurological Exam Neurological exam: Alert, CN II-XII Intact, Oriented x3 Additional comments: Muscle strength: LUE: Biceps 4/5, Triceps 3/4, IO 5/5, Wrist flexion 4/5 RUE: 5/5 throughout LLE: 5/5 throughout RLE: 5/5 throughout Absent sensation in entire left hand and wrist, sensation fully intact proximal to wrist - Psychiatric Exam Psychiatric exam: Normal Affect, Normal Mood - Skin Skin Exam: Dry, Intact Results - Vital Signs Recent Vital Signs: Last Vital Signs Temp 98.4 F 04/09/18 15:24 Pulse 71 04/09/18 15:24 Resp 16 04/09/18 15:24 BP 113/83 04/09/18 15:24 Pulse Ox 99 04/09/18 15:24 - Labs Result Diagrams: 04/09/18 15:09 04/09/18 15:09 Labs: Laboratory Results - last 24 hr 04/09/18 04/09/18 04/09/18 12:53 15:09 15:09 WBC 8.8 RBC 4.61 Hgb 13.5 Hct 41.1 MCV 89.1 MCH 29.4 MCHC 32.9 L RDW 13.8 Plt Count 315 MPV 10.0 Neut % (Auto) 75.5 H Lymph % (Auto) 16.6 L [place] % (Auto) 5.5 Eos % (Auto) 1.3 Baso % (Auto) 1.1 Neut # (Auto) 6.7 Lymph # (Auto) 1.5 [place] # (Auto) 0.5 Eos # (Auto) 0.1 Baso # (Auto) 0.1 Sodium 139 Potassium 4.6 Chloride 103 Carbon Dioxide 26 Anion Gap 15 BUN 13 Creatinine 0.7 Est GFR ( Amer) > 60 Est GFR (Non-Af Amer) > 60 POC Glucose (mg/dL) 89 Random Glucose 85 Calcium 9.5 Total Bilirubin 0.8 AST 34 ALT 16 Alkaline Phosphatase 67 Total Protein 8.7 H Albumin 5.1 H D Globulin 3.6 Albumin/Globulin Ratio 1.4 Assessment & Plan - Assessment and Plan (Free Text) Assessment: Patient is a 28 year old female with no PMHx who presents with 6 hours acute onset left hand and arm numbness. Rule out stroke vs distal nerve entrapment as in radial nerve entrapment. Plan: Rule out stoke vs distal nerve entrapment (ie radial nerve) -Patient with LUE distal numbness, weakness on exam. No other neurological symptoms. -MRI brain without contrast 04/09 - Unremarkable non contrast enhanced MRI of the brain. -ASA 325mg PO -Monitor on tele, plan for discharge tomorrow Assessment and plan discussed with Dr. Robin Olson, PGY-1 <Alley Kelly - Last Filed: 04/10/18 12:31> History of Present Illness - History of Present Illness History of Present Illness: Miss Cardenas is a young woman who presented with left arm and hand numbness that was diffuse and not clearly dermatomal. We are concerned about right basal ganglia stroke, and will obtain MRI Brain. Plan: admit to telemetry aspirin. Neurochecks. I examined the patient independently and formulated the plan and assessment with the resident. Thank you Dr. Alley Basurto MD DPN [facility] Results - Vital Signs Recent Vital Signs: Last Vital Signs Temp 98.1 F 04/09/18 18:25 Pulse 70 04/09/18 18:25 Resp 16 04/09/18 18:25 BP 129/84 04/09/18 18:25 Pulse Ox 99 04/09/18 18:25 - Labs Result Diagrams: 04/09/18 15:09 04/09/18 15:09 Labs: Laboratory Results - last 24 hr 04/09/18 04/09/18 04/09/18 12:53 15:09 15:09 WBC 8.8 RBC 4.61 Hgb 13.5 Hct 41.1 MCV 89.1 MCH 29.4 MCHC 32.9 L RDW 13.8 Plt Count 315 MPV 10.0 Neut % (Auto) 75.5 H Lymph % (Auto) 16.6 L [place] % (Auto) 5.5 Eos % (Auto) 1.3 Baso % (Auto) 1.1 Neut # (Auto) 6.7 Lymph # (Auto) 1.5 [place] # (Auto) 0.5 Eos # (Auto) 0.1 Baso # (Auto) 0.1 Sodium 139 Potassium 4.6 Chloride 103 Carbon Dioxide 26 Anion Gap 15 BUN 13 Creatinine 0.7 Est GFR ( Amer) > 60 Est GFR (Non-Af Amer) > 60 POC Glucose (mg/dL) 89 Random Glucose 85 Calcium 9.5 Total Bilirubin 0.8 AST 34 ALT 16 Alkaline Phosphatase 67 Total Protein 8.7 H Albumin 5.1 H D Globulin 3.6 Albumin/Globulin Ratio 1.4
[2018-04-09 18:26] VITALS: BP 129/84; PULSE 70; TEMP 98.1
[2018-04-11 00:23] VITALS: O2SAT 97
== END 2018-04-09 18:09 | disposition left against medical advice (07) ==
LOC: C.ER 12:41 → C.9E 14:55
PROVIDERS: ADMIT Internal Medicine; ATTEND Internal Medicine
DX: G62.9 Polyneuropathy, unspecified (principal); G89.29 Other chronic pain; F17.210 Nicotine dependence, cigarettes, uncomplicated; J45.909 Unspecified asthma, uncomplicated; Z90.49 Acquired absence of other specified parts of digestive tract
CPT/HCPCS: 70551; 73562; 80053; 81025; 82948; 85025; 93971; G0378